=== PATIENT | male | born 1965 | race Caucasian/White ===

== ENCOUNTER 2024-05-23 10:34 | Emergency (ER) | payer MEDICAID, SELFPAY ==
[2024-05-23 10:35] VITALS: BMI 30.1
[2024-05-23 11:18] VITALS: BP 236/139; PULSE 97; RESP 20; TEMP 36.7; O2SAT 96
--- NOTE | 2024-05-23 11:26 | EDNOTE_ITS ---
ED Dental RME/HPI General Chief complaint: Dental/Oral/Throat Stated complaint: DENTAL PAIN Time Seen by Provider: 05/23/24 11:02 Source: patient Arrival date/time: 05/23/24 10:34 58-year-old male presents emergency department complaining of left tooth pain that is been ongoing for several days. On arrival patient's blood pressure elevated patient declined any further treatment or medication for blood pressure or further testing. Patient requesting antibiotics for tooth infection and discharge. Mode of arrival: ambulatory Limitations: no limitations Related Data Previous Rx's ?Medication ?Instructions ?Recorded amoxicillin 875 mg-potassium 1 tab PO BID 7 days #14 tabs 05/23/24 clavulanate 125 mg tablet hydrocodone 5 mg-acetaminophen 325 1 tab PO BID PRN pain #7 tabs 05/23/24 mg tablet Allergies Allergy/AdvReac Type Severity Reaction Status Date / Time No Known Allergies Allergy Verified 05/23/24 10:36 Review of Systems Review of Systems Systems Reviewed: All systems reviewed, normal except as documented Constitutional Constitutional: Reports system reviewed and no additional complaints, except as documented, Denies body ache(s), Denies chills and Denies fever(s) Eyes Eyes: Reports system reviewed and no additional complaints, except as documented and Denies change in vision ENT Ears, Nose, Mouth, and Throat: Reports system reviewed and no additional complaints, except as documented, Denies disequilibrium, Denies dizziness, Denies sore throat, Denies vertigo and Reports other (tooth pain) Cardiovascular Cardiovascular: Reports system reviewed and no additional complaints, except as documented, Denies chest pain and Denies dyspnea Respiratory Respiratory: Reports system reviewed and no additional complaints, except as documented, Denies chest congestion, Denies cough and Denies dyspnea Gastrointestinal Gastrointestinal: Reports system reviewed and no additional complaints, except as documented, Denies abdominal pain, Denies nausea and Denies vomiting Musculoskeletal Musculoskeletal: Reports system reviewed and no additional complaints, except as documented, Denies abnormal gait and Denies arthralgias Integumentary/Breasts Skin/Breast: Reports system reviewed and no additional complaints, except as documented, Denies erythema, Denies rash and Denies wounds Neurologic Neurologic: Reports system reviewed and no additional complaints, except as documented, Denies abnormal gait, Denies disequilibrium, Denies dizziness and Denies vertigo Past Medical History Social History SMOKING STATUS: Never smoker ED Exam General Limitations: Present no limitations General appearance: Present alert and in no apparent distress Head Head exam: Present atraumatic Eye Eye exam: Present normal appearance, PERRL and EOMI ENT ENT exam: Present normal exam, normal oropharynx and mucous membranes moist Expanded ENT Exam Teeth exam: Present dental caries and gingival swelling Neck Neck exam: Present normal inspection, full ROM and trachea midline Chest Chest inspection: Present normal inspection and symmetric chest wall rise Respiratory Respiratory exam: Present normal lung sounds bilaterally Cardiovascular Cardiovascular exam: Present regular rate, normal rhythm and normal heart sounds Abdominal Exam Abdominal exam: Present soft and normal bowel sounds Extremities Exam Extremities exam: Present normal inspection and full ROM Back Exam Back exam: Present normal inspection and full ROM Neurological Exam Neurological exam: Present alert, oriented X3 and CN II-XII intact Psychiatric Psychiatric exam: Present normal affect and normal mood Skin Skin exam: Present warm, dry, intact and normal color Course Quality Measures none Orders Category Date Time Status Amoxicillin/Pot Clav 875 [Augmentin 875] Med 05/23/24 11:28 Discontinued 1 tab PO X1 ONE HYDROcodone*/APAP 5/325 [[place] 5/325] Med 05/23/24 11:40 Discontinued 1 tab PO X1 ONE Vital Signs Vital signs: Vital Signs Temperature 98.0 F 05/23/24 11:18 Pulse Rate 97 05/23/24 11:18 Respiratory Rate 20 05/23/24 11:18 Blood Pressure 236/139 H 05/23/24 11:18 Pulse Oximetry (%) 96 05/23/24 11:18 Oxygen Delivery Method Room Air 05/23/24 11:18 96% RA WNL. Dental / Oral MDM Narrative MDM Narrative:: 58-year-old male with pmh hypertension presents emergency department complaining of left tooth pain that is been ongoing for several days. On arrival patient's blood pressure elevated patient declined any further treatment or medication for blood pressure or further testing. Patient requesting antibiotics for tooth infection and discharge. Patient GCS 15 with steady gait and appropriate behavior. Patient appears non toxic and hemodynamically stable. Patient reports pending dentist appointment on Friday. Patient c/o tooth pain that has not let him sleep 03/04. patient given antibiotics and pain medication instructed return to ER for any worsening symptoms or as needed. Patient data External records reviewed:: None Clinical information provided by:: patient Social determinants that could affect healthcare access:: none Patient has the following chronic illnesses:: see chart How is presenting disease/condition affected by chronic disease/condition?: uneffected by Evaluation data The following diagnostics were reviewed and interpreted by me:: other (specify) (n/a) Lab and/or radiology exams considered but not ordered:: n/a Interpretation Summary: n/a Medications / Prescriptions Medications or Prescriptions considered but not ordered:: ordered Medication administrations:: Medication Administration History Discontinued Medications Hydrocodone Bitart/Acetaminophen (Hydrocodone/Apap 5/325 Tablet) 1 tab PO X1 ONE Stop: 05/23/24 11:41 Last Admin: 05/23/24 11:42 Dose: 1 tab Documented By: Luigi Amoxicillin/Clavulanate Potassium (Amoxicillin/Pot Clav 875 Tablet) 1 tab PO X1 ONE Stop: 05/23/24 11:29 Last Admin: 05/23/24 11:39 Dose: 1 tab Documented By: MARIEL given Consultations Consultation(s) initiated? (list below): No Diagnosis Dental Differential Diagnosis: gingival abscess, dental caries, toothache, dental abscess and fracture of tooth Most likely diagnosis given after review of the tests above:: infected tooth Admission Indicated Admission indicated?: not indicated Admission Request Was there a request for admission?: No Disposition Plan Disposition Plan: Discharge Discharge Attestation Discharge Attestation: The patient and all family members were given an opportunity to ask questions and understood the discharge instructions. Discharge instructions specifically effects, indications for sooner follow up or return to the emergency department, and the expected course of current diagnosis. Patient condition: Stable Discharge Plan Plan Patient Disposition: HOME (Self Care) Disposition Comment: Stable Prescriptions/Referrals Prescriptions/Med Rec: New hydrocodone-acetaminophen 5-325 mg tablet 1 tab PO BID MDD 2 tabs PRN (Reason: pain) Qty: 7 0RF amoxicillin-pot clavulanate 875-125 mg tablet 1 tab PO BID 7 Days Qty: 14 0RF Problem List Clinical Impression: Infected tooth Patient/Caregiver Discharge Instructions Discharge Activity: activity as tolerated Education Materials: ED Dental Abscess Additional Instructions: Take pain medication as prescribed. Take antibiotics as prescribed. Follow-up with primary care provider upon discharge. Follow-up with dentist in 24 to 48 hours. As discussed. Return to the emergency department for any worsening symptoms or as needed. Print Language: Tuval[place] Stand Alone Forms: [employer] Award Info., Patient Portal Info Letter PA/DIRECTOR OF VENDOR MANAGEMENT Supervising Physician PA/DIRECTOR OF VENDOR MANAGEMENT Supervising Physician: Dr. Chen
[2024-05-23] MEDS: AMOXICILLIN/POT CLAV 875 TABLET 1 TAB PO (11:39)
[2024-05-23] MEDS: HYDROcodone/APAP 5/325 TABLET 1 TAB PO (11:42)
== END 2024-05-23 11:45 | disposition home or self-care (01) ==
LOC: SERX 11:49
PROVIDERS: Emergency Provider Emergency Medicine; PCP Registered Nurse; Referring Provider Emergency Medicine
DX: K04.7 Periapical abscess without sinus (principal)
CPT/HCPCS: 99283; A9270